=== PATIENT | female | born 1965 | race Caucasian/White ===

== ENCOUNTER 2019-05-21 10:28 | Outpatient (CLI) | payer OTHER, SELFPAY ==
--- NOTE | 2019-05-21 10:48 | MM_ITS ---
WS: [id number] DIAGNOSTIC BILATERAL DIGITAL MAMMOGRAM WITH CAD Bilateral breast ultrasound, limited HISTORY: BREAST PAIN COMPARISON: None available. TECHNIQUE: Bilateral craniocaudad, mediolateral oblique, and mediolateral views are submitted. Spot c ompression cc views and LEFT MLO. Computer aided detection utilized. Breast composition: There are scattered areas of fibroglandular density. Triangular markers are place d in the upper-outer quadrant of the LEFT breast. No underlying abnormality. There is an additional t riangular marker in the medial RIGHT breast below the nipple with no underlying abnormality. No soft tissue calcifications or masses. Bilateral breast ultrasound. RIGHT breast: At 3:00, 3 cm from the nipple is a small cyst measuring 3 x 3 x 2 mm. At 9:00 no abnorm ality. LEFT breast: At 1:00 and 3:00, 2 cm from nipple is dense fibroglandular tissue. No mass. 1. At 3:00 RIGHT breast there is a small simple cyst with a maximum diameter of 3 mm. 2. The additional bilateral areas of breast pain are negative by imaging. MM/[place] [id number] IMPRESSION: BI-RADS: 2-Benign FOLLOW UP: 1 Year Follow-up
--- NOTE | 2019-05-21 11:43 | US_ITS ---
WS: [id number] DIAGNOSTIC BILATERAL DIGITAL MAMMOGRAM WITH CAD Bilateral breast ultrasound, limited HISTORY: BREAST PAIN COMPARISON: None available. TECHNIQUE: Bilateral craniocaudad, mediolateral oblique, and mediolateral views are submitted. Spot c ompression cc views and LEFT MLO. Computer aided detection utilized. Breast composition: There are scattered areas of fibroglandular density. Triangular markers are place d in the upper-outer quadrant of the LEFT breast. No underlying abnormality. There is an additional t riangular marker in the medial RIGHT breast below the nipple with no underlying abnormality. No soft tissue calcifications or masses. Bilateral breast ultrasound. RIGHT breast: At 3:00, 3 cm from the nipple is a small cyst measuring 3 x 3 x 2 mm. At 9:00 no abnorm ality. LEFT breast: At 1:00 and 3:00, 2 cm from nipple is dense fibroglandular tissue. No mass. 1. At 3:00 RIGHT breast there is a small simple cyst with a maximum diameter of 3 mm. 2. The additional bilateral areas of breast pain are negative by imaging. US/US breast BI limited* [id number] IMPRESSION: BI-RADS: 2-Benign FOLLOW UP: 1 Year Follow-up
== END 2019-05-21 10:29 | disposition home or self-care (01) ==
PROVIDERS: Family Provider Family Medicine; Visit Provider Internal Medicine
DX: N64.4 Mastodynia (principal); Z80.3 Family history of malignant neoplasm of breast; N60.01 Solitary cyst of right breast
CPT/HCPCS: 76642; 77066